=== PATIENT | male | born 1955 ===

== ENCOUNTER 2022-02-07 20:08 | Emergency (ER) | payer SELFPAY ==
[2022-02-07 21:30] LABS: SARS-CoV-2 NAA Rapid Test DETECTED (NotDetected)
== END 2022-02-07 22:21 | disposition home or self-care (01) ==
LOC: CSHERS 20:08
DX: U07.1 COVID-19 (principal); S02.832A Fracture of medial orbital wall, left side, initial encounter for closed fracture; S02.2XXA Fracture of nasal bones, initial encounter for closed fracture; I10 Essential (primary) hypertension; Y04.0XXA Assault by unarmed brawl or fight, initial encounter
CPT/HCPCS: 70450; 70486; 76377; U0002